=== PATIENT | female | born 1990 | race Two or more races ===

== ENCOUNTER 2020-03-14 01:18 | Emergency (ER) | payer OTHER ==
[~2020-03-14] VITALS: Ht 152.4 cm; Wt 113.4 kg
[2020-03-14] MEDS ORDERED: SPRINTEC 28 DA1 EACH (01:39)
== END 2020-03-14 02:38 | disposition home or self-care (01) ==
LOC: ER 01:18
DX: N75.8 Other diseases of Bartholin's gland (principal)

== ENCOUNTER 2022-09-16 12:03 | Emergency (ER) | payer OTHER ==
[~2022-09-16] VITALS: Ht 152.4 cm; Wt 108.9 kg
[~2022-09-16 12:03] MED LIST: SPRINTEC 28 DA1 EACH
[2022-09-16] MEDS ORDERED: INTESTINEX680 M1 PO (18:00)
[2022-09-16] MEDS ORDERED: ONDANSETRON ODT4 MG PO (18:00)
[2022-09-16] MEDS ORDERED: PEPCID AC20 MG PO (18:00)
[2022-09-16] MEDS ORDERED: OSEL75CA PO (18:00)
== END 2022-09-16 18:25 ==
LOC: ER 12:03
DX: J10.1 Influenza due to other identified influenza virus with other respiratory manifestations (principal); K52.9 Noninfective gastroenteritis and colitis, unspecified; Z20.822 Contact with and (suspected) exposure to COVID-19